=== PATIENT | male | born 1980 | race Caucasian/White ===

== ENCOUNTER 2016-12-22 15:00 | Emergency (ER) | payer BC, MEDICAID, OTHER ==
[~2016-12-22] VITALS: Ht 172.7 cm; Wt 70.3 kg
[~2016-12-22 15:00] MED LIST: CLON2TAB PO; DOXY-182 PO; Docusate Sodium PO; HYDR-548 PO; LACT1CAP57 PO; MIRT15TA PO; OXYC5TAB3 PO; SOFO400T PO; [UNRECOGNIZED DRUG - OTHER]
[2016-12-22] MEDS ORDERED: ESCI5TAB PO (15:34)
[2016-12-22] MEDS ORDERED: DIAZ5TAB PO (15:34)
[2016-12-22] MEDS ORDERED: SULFAMETH/TRIMETH 800/160 MG TABLET PO ONE (15:45)
[2016-12-22] MEDS ORDERED: CEPHALEXIN MONOHYDRATE 500 MG CAPSULE PO ONE (15:45)
[2016-12-22] MEDS ORDERED: HYDROCODONE/APAP 5-325MG TABLET PO ONE (15:45)
[2016-12-22] MEDS ORDERED: SULFAMETH/TRIMETH 800/160 MG TABLET ONE ×2 (16:09→16:14)
[2016-12-22] MEDS ORDERED: CEPHALEXIN MONOHYDRATE 500 MG CAPSULE ONE ×2 (16:09→16:14)
[2016-12-22] MEDS ORDERED: HYDROCODONE/APAP 5-325MG TABLET ONE ×2 (16:09→16:14)
--- NOTE | 2016-12-22 17:17 | NUR ---
PATIENT WAS SEEN BY MD FOR C/O WRIST/HAND PAIN. XRAYS WERE DONE. DC, RX AND FOLLOW UP INSTRUCTIONS GIVEN AND EXPLAINED TO PATIENT WHO STATES HE UNDERSTANDS ALL INSTRUCTIONS.
== END 2016-12-22 17:21 | disposition home or self-care (01) ==
LOC: ER 15:01
DX: L03.113 Cellulitis of right upper limb (principal); B19.20 Unspecified viral hepatitis C without hepatic coma; F17.200 Nicotine dependence, unspecified, uncomplicated
CPT/HCPCS: 73130; A4663

== ENCOUNTER 2018-01-07 19:04 | Emergency (ER) | payer BC, MEDICAID ==
[~2018-01-07] VITALS: Ht 175.3 cm; Wt 72.6 kg
[~2018-01-07 19:04] MED LIST changes: -CLON2TAB PO; +DIAZ5TAB PO; -DOXY-182 PO; -Docusate Sodium PO; +ESCI5TAB PO; -HYDR-548 PO; -LACT1CAP57 PO; -MIRT15TA PO; -OXYC5TAB3 PO; -SOFO400T PO
--- NOTE | 2018-01-07 19:16 | NUR ---
PT BIB [facility] WITH FOR HEROIN OVERDOSE, PT STATES HE HAS BEEN SOBER FOR 2 YRS AND RELAPSED. HE ALSO HAD 2 SHOTS OF WHISKEY. PT WAS FOUND BEHIND A BUILDING IN [facility] AND WAS GIVEN IV NARCAN. IV PRESENT [address] FA HERBARIUM CURATOR. PT IS AAOX4. CALM AND COOPERATIVE AT THIS TIME. SA02 97% RA.
--- NOTE | 2018-01-07 19:19 | NUR ---
[employer] AT BEDSIDE
--- NOTE | 2018-01-07 19:47 | NUR ---
Patient eloped from facility. ER physician notified.
--- NOTE | 2018-01-07 19:49 | NUR ---
CALLED [facility] AND GAVE THEM DESCRIPTION OF PT AND WHERE PT WAS PICKED UP FROM.
--- NOTE | 2018-01-07 20:02 | NUR ---
PT ELOPED WITH IV PRESENT [address] G[address] FA. NOTIFIED [employer] AND SPOKE WITH [employer] HAND LAMINATOR 759 REGARDING INCIDENT.
--- NOTE | 2018-01-07 20:23 | NUR ---
2 [employer] OFFICERS HERE TO INVESTIGATE INCIDENT
== END 2018-01-08 01:54 | disposition left against medical advice (07) ==
LOC: ER 19:07
DX: Z53.21 Procedure and treatment not carried out due to patient leaving prior to being seen by health care provider (principal)
CPT/HCPCS: A4663

== ENCOUNTER 2018-11-13 18:01 | Emergency (ER) | payer MEDICAID, OTHER ==
[~2018-11-13] VITALS: Ht 172.7 cm; Wt 77.1 kg
[2018-11-13] MEDS ORDERED: GABA600T12 PO (18:19)
[2018-11-13] MEDS ORDERED: CLON1TAB PO (18:19)
[2018-11-13] MEDS ORDERED: ESCI20TA PO (18:19)
--- NOTE | 2018-11-13 18:20 | NUR ---
Patient C/O right side abdominal pain with diarrhea for about 1.5 weeks. Denies N/V,SOB,CP upon arrival.
[2018-11-13 18:47] LABS: BASOPHILS % (AUTO) 0.4 % (0.0-2.0); EOSINOPHILS # (AUTO) 0.3 K/uL (0.0-0.7); EOSINOPHILS % (AUTO) 3.5 % (0.0-7.0); HEMATOCRIT 40.2 % (36.7-47.1); HEMOGLOBIN 14.3 g/dL (12.5-16.3); LYMPHOCYTES # (AUTO) 4.7 K/uL (20.0-40.0); LYMPHOCYTES % (AUTO) 62.9 % (20.5-51.5); MEAN CORPUSCULAR HEMOGLOBIN 32.4 uug (23.8-33.4); MEAN CORPUSCULAR HGB CONC 36 g/dL (32.5-36.3); MEAN CORPUSCULAR VOLUME 91.3 fL (73.0-96.2); MONOCYTES # (AUTO) 0.5 K/uL (2.0-10.0); MONOCYTES % (AUTO) 7.1 % (0.0-11.0); NEUTROPHILS # (AUTO) 1.9 K/uL (1.8-8.9); NEUTROPHILS % (AUTO) 26.1 % (38.5-71.5); PLATELET COUNT (AUTO) 200 K/uL (152-348); RED BLOOD CELL COUNT(AUTO) 4.41 MIL/uL (4.06-5.63); WHITE BLOOD COUNT (AUTO) 7.4 K/uL (3.6-10.2)
[2018-11-13 18:49] LABS: *BILIRUBIN,URIN NEGATIVE (NEGATIVE); *BLOOD, URINE NEGATIVE (NEGATIVE); *CLARITY,URINE CLEAR (CLEAR); *COLOR,URINE YELLOW (YELLOW); *KETONES,URINE NEGATIVE (NEGATIVE); *UROBILINOGEN,URINE 0.2 E.U./dl (NORMAL); LEUKOCYTE ESTERASE ,URINE NEGATIVE (NEGATIVE); NITRITE, URINE NEGATIVE (NEGATIVE); PH,URINE 6.5 (5.0-8.0); UGLUCOSE NEGATIVE (NEGATIVE)
[2018-11-13 19:23] LABS: BILIRUBIN,DIRECT 0.2 mg/dL (0.0-0.2); BILIRUBIN,TOTAL 0.7 mg/dL (0.2-1.0); CREATININE 0.9 mg/dL (0.6-1.3); POTASSIUM 4.1 mmol/L (3.5-5.1)
--- NOTE | 2018-11-13 19:47 | NUR ---
AT BEDSIDE FOR UPDATE. PT NAD
--- NOTE | 2018-11-13 19:52 | NUR ---
Patient discharged to home in stable conditon. Written and verbal after care instructions given. Patient verbalizes understanding of instructions. AMBULATORY WITH STABLE GAIT. ALL BELONGINGS WITH PATIENT
[2018-11-13 19:53] VITALS: BP 130/80
== END 2018-11-13 19:45 | disposition home or self-care (01) ==
LOC: ER 18:04
DX: R10.30 Lower abdominal pain, unspecified (principal); R19.7 Diarrhea, unspecified; F41.9 Anxiety disorder, unspecified; F17.290 Nicotine dependence, other tobacco product, uncomplicated; F11.10 Opioid abuse, uncomplicated; Z71.6 Tobacco abuse counseling; Z88.8 Allergy status to other drugs, medicaments and biological substances; Z79.899 Other long term (current) drug therapy
CPT/HCPCS: 36415; 83690; 85025; A4663

== ENCOUNTER 2019-01-25 12:30 | Emergency (ER) | payer BC ==
[~2019-01-25] VITALS: Ht 172.7 cm; Wt 74.8 kg
[~2019-01-25 12:30] MED LIST changes: +CLON1TAB PO; -DIAZ5TAB PO; +ESCI20TA PO; -ESCI5TAB PO; +GABA600T12 PO; -[UNRECOGNIZED DRUG - OTHER]
[2019-01-25] MEDS ORDERED: IBUPROFEN 600 MG TABLET PO ONE (13:15)
--- NOTE | 2019-01-25 13:16 | NUR ---
Patient discharged to home in stable conditon. Written and verbal after care instructions given. Patient verbalizes understanding of instructions.
== END 2019-01-25 13:18 | disposition home or self-care (01) ==
LOC: ER 12:32
DX: K42.9 Umbilical hernia without obstruction or gangrene (principal); F41.9 Anxiety disorder, unspecified; F17.200 Nicotine dependence, unspecified, uncomplicated; F11.10 Opioid abuse, uncomplicated; Z88.8 Allergy status to other drugs, medicaments and biological substances; Z79.899 Other long term (current) drug therapy
CPT/HCPCS: A4663

== ENCOUNTER 2019-08-22 18:27 | Emergency (ER) | payer BC, OTHER ==
[~2019-08-22] VITALS: Ht 172.7 cm; Wt 74.8 kg
--- NOTE | 2019-08-22 18:50 | NUR ---
PATIENT WAS MSE BY DR COTTON IN ROOM 04A.
[2019-08-22] MEDS ORDERED: TRAMADOL HCL 50 MG TABLET PO ONE (19:00)
[2019-08-22] MEDS ORDERED: DEXAMETHASONE 4 MG TABLET PO ONE (19:00)
[2019-08-22] MEDS ORDERED: IBUPROFEN 600 MG TABLET PO ONE (19:00)
[2019-08-22] MEDS ORDERED: IBUPROFEN 600 MG TABLET ONE ×2 (19:05→19:13)
[2019-08-22] MEDS ORDERED: DEXAMETHASONE 4 MG TABLET ONE ×2 (19:05→19:13)
[2019-08-22] MEDS ORDERED: TRAMADOL HCL 50 MG TABLET ONE ×2 (19:06→19:13)
--- NOTE | 2019-08-22 19:28 | NUR ---
Patient discharged to home in stable condition. Written and verbal after care instructions given. Patient verbalizes understanding of instructions. Stressed follow up or return to ER for worsening s/s.
[2019-08-22 19:29] VITALS: BP 110/77
== END 2019-08-22 19:30 | disposition home or self-care (01) ==
LOC: ER 18:31
DX: M10.9 Gout, unspecified (principal)
CPT/HCPCS: 99283; J8540; A4663

== ENCOUNTER 2019-12-20 19:22 | Emergency (ER) | payer BC, MEDICAID, OTHER ==
[~2019-12-20] VITALS: Ht 172.7 cm; Wt 77.1 kg
--- NOTE | 2019-12-20 19:35 | NUR ---
Assumed care of patient. Patient arrives with c/o BUE pain/swelling s/p injecting heroin 5 days ago.
[2019-12-20 19:58] VITALS: BP 128/81
[2019-12-20] MEDS ORDERED: SULFAMETH/TRIMETH 800/160 MG TABLET ONE (19:59)
--- NOTE | 2019-12-20 19:59 | NUR ---
Patient discharged to home in stable condition. Written and verbal after care instructions given. Patient verbalizes understanding of instructions. Stressed follow up or return to ER for worsening s/s. Ambulated from ER with stable gait. All belongings with patient. VSS
[2019-12-20] MEDS ORDERED: SULFAMETH/TRIMETH 800/160 MG TABLET PO ONE (20:00)
== END 2019-12-20 20:02 | disposition home or self-care (01) ==
LOC: ER 19:22
DX: R23.4 Changes in skin texture (principal); S51.832S Puncture wound without foreign body of left forearm, sequela; S51.831S Puncture wound without foreign body of right forearm, sequela; X78.8XXS Intentional self-harm by other sharp object, sequela; G89.4 Chronic pain syndrome; F11.10 Opioid abuse, uncomplicated; F17.200 Nicotine dependence, unspecified, uncomplicated; Z88.8 Allergy status to other drugs, medicaments and biological substances; F10.20 Alcohol dependence, uncomplicated; Z86.19 Personal history of other infectious and parasitic diseases
CPT/HCPCS: A4663

== ENCOUNTER 2020-10-20 15:44 | Emergency (ER) | payer MEDICAID ==
[~2020-10-20] VITALS: Ht 172.7 cm; Wt 77.1 kg
--- NOTE | 2020-10-20 15:50 | NUR ---
Right hand and left inner forearm cellulitis noted
[2020-10-20] MEDS ORDERED: SULF1TAB48 PO (16:05)
[2020-10-20] MEDS ORDERED: CEPH500C2 PO (16:05)
--- NOTE | 2020-10-20 16:16 | NUR ---
Patient discharged to home in stable condition. HR 110, states he took heroin this morning. Written and verbal after care instructions given. Patient verbalizes understanding of instructions. Stressed follow up or return to ER for worsening s/s.
[2020-10-20 16:27] VITALS: BP 114/89
== END 2020-10-20 16:20 | disposition home or self-care (01) ==
LOC: ER 15:46
DX: L03.113 Cellulitis of right upper limb (principal); L03.114 Cellulitis of left upper limb; F15.129 Other stimulant abuse with intoxication, unspecified; F19.10 Other psychoactive substance abuse, uncomplicated; G89.4 Chronic pain syndrome; F41.9 Anxiety disorder, unspecified; Z79.899 Other long term (current) drug therapy
CPT/HCPCS: A4663

== ENCOUNTER 2020-10-25 23:54 | Emergency (ER) | payer MEDICAID ==
[~2020-10-25] VITALS: Ht 172.7 cm; Wt 83.0 kg
[~2020-10-25 23:54] MED LIST changes: +CEPH500C2 PO; +SULF1TAB48 PO
--- NOTE | 2020-10-26 00:40 | NUR ---
Dr. Quijano at bedside for MSE.
[2020-10-26] MEDS ORDERED: LIDOCAINE 1%-EPI 1:100,000 20 ML VIAL IJ ONE (00:45)
[2020-10-26] MEDS ORDERED: SULF1TAB48 PO (01:11)
[2020-10-26] MEDS ORDERED: CEPH500C2 PO (01:11)
--- NOTE | 2020-10-26 01:20 | NUR ---
Patient discharged to home in stable condition. Written and verbal after care instructions given. Patient verbalizes understanding of instructions. Stressed follow up or return to ER for worsening s/s. Patient out of ER with steady gait, no acute signs of distress, VSS, all belongings taken.
[2020-10-26 01:23] VITALS: BP 110/80
== END 2020-10-26 01:23 | disposition home or self-care (01) ==
LOC: ER 23:56
DX: L03.114 Cellulitis of left upper limb (principal); L03.113 Cellulitis of right upper limb; Z86.19 Personal history of other infectious and parasitic diseases; F41.9 Anxiety disorder, unspecified; M10.9 Gout, unspecified; Z79.899 Other long term (current) drug therapy; Z88.1 Allergy status to other antibiotic agents; G89.4 Chronic pain syndrome